=== PATIENT | female | born 1955 | race Caucasian/White ===

== ENCOUNTER 2017-04-28 10:59 | Inpatient (IN) | payer MEDICAID ==
[~2017-04-28] VITALS: Ht 154.9 cm; Wt 118.2 kg
--- NOTE | ~2017-04-28 | DS ---
PATIENT:SABI MARIN :57 MEDICAL RECORD: [id number] DISCHARGE SUMMARY ADMISSION DATE: 04/28/17 DISCHARGE DATE: DATE OF ADMISSION: 04/28/2017 DATE OF DISCHARGE: 04/29/2017 PROBLEM LIST: 1. Sick sinus syndrome with atrial fibrillation, controlled rate. 2. Hypertension. 3. Hyperlipidemia. 4. Coronary artery disease, status post coronary bypass grafting. BRIEF HISTORY AND HOSPITAL COURSE: Admitted with AFib with RVR, recent urinary tract infection, I suspect that is going to be a factor. She had pacemaker placed recently, however, was not placed on any rate controlling agents, had been on diltiazem and beta melisa in the past, both. She responded nicely to Cardizem drip, started on oral Cardizem, discharged home in good condition. MEDICATIONS: Same as admission with the addition of Cardizem-CD 300 every day. 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 TRANSINT:[id number] Voice Confirmation ID: [id number] DOCUMENT ID: [id number] JARROD BRANTLEY MD at 1021 CC: [id number] DICTATION DATE: 04/29/17 0840 NATIONAL FACILITIES MANAGER: 04/29/17 0956 ADM IN [place] [id number] [place] [address]
[2017-04-28 11:24] LABS: BASOPHILS 0.1 % (0-2); EOSINOPHILS 0.1 % (0-7); HEMATOCRIT 33.8 % (36.0-48.0); HEMOGLOBIN 10.9 g/dL (12-16); IMMATURE GRANULOCYTES 0.3 % (0-5); MCH 25.8 pg (26.0-34.0); MCHC 32.2 g/dL (31.0-37.0); MCV 80.1 fL (80.0-100.0); MEAN PLATELET VOLUME 9.8 fL (7.4-10.4); MONOCYTES 8.4 % (2-11); NEUTROPHILS 82.1 % (40-80); PLATELET COUNT 200 10x3/uL (130-400); RBC 4.22 10x6/uL (4.00-5.40); RDW 17.4 % (11.5-14.5); WBC 10.8 10x3/uL (4.8-10.8)
[2017-04-28 11:36] LABS: APTT 47.1 SECONDS (22.8-39.4); INR 2.78 (0.85-1.17); PROTIME 28.7 SECONDS (11.6-15.0)
[2017-04-28 11:41] LABS: ALBUMIN 2.4 g/dL (3.4-5.0); ALKALINE PHOSPHATASE 189 U/L (46-116); ALT (SGPT) 50 U/L (10-68); BILIRUBIN - TOTAL 2.02 mg/dL (0.2-1.3); CALC OSMOLALITY 267 mosm/kg (275-300); CALCIUM 8.6 mg/dL (8.5-10.1); CARBON DIOXIDE 28.7 mmol/L (21.0-32.0); CHLORIDE - SERUM 89 mmol/L (98-107); CREATININE - SERUM 1.2 mg/dL (0.6-1.3); POTASSIUM - SERUM 3.7 mmol/L (3.5-5.1); PROTEIN - SERUM 8.5 g/dL (6.4-8.2); SODIUM 127 mmol/L (136-145); UREA NITROGEN 15 mg/dL (7-18); eGFR NON AFRICAN AMERICAN 48 mL/min (90-120)
[2017-04-28 11:43] LABS: GLUCOSE 317 mg/dL (74-106)
[2017-04-28 12:00] LABS: CKMB 0.4 U/L (0.0-3.6); CREATINE KINASE 74 UL (21-215); PRO BNP 3103 pg/mL (0-125); TROPONIN-I 0.034 ng/mL (0.000-0.060)
[2017-04-28 18:22] LABS: CHOL - HDL RATIO 2.6 ratio (2.3-4.1); LDL-HDL RATIO 1.2 ratio (1.5-3.5)
[2017-04-29] VITALS: BP 154/73
[2017-04-29 00:32] VITALS: BP 136/74; Ht 154.9 cm; Wt 118.2 kg
[2017-04-29] MEDS ORDERED: HYDROCODONE-APA1 TAB PO (02:50)
[2017-04-29] MEDS ORDERED: XARELTO20 MG PO (02:50)
[2017-04-29] MEDS ORDERED: GLUCOTROL 5 MG T5 MG PO (02:51)
[2017-04-29] MEDS ORDERED: DILT-XR240 MG PO (02:52)
[2017-04-29] MEDS ORDERED: LANOXIN125 MCG PO (02:52)
[2017-04-29] MEDS ORDERED: BUMEX 1 MG TAB1 MG PO (02:52)
[2017-04-29] MEDS ORDERED: BETAPACE 80 MG80 MG PO (02:52)
[2017-04-29] MEDS ORDERED: LISINOPRIL10 MG PO (02:53)
[2017-04-29] MEDS ORDERED: KLOR-CON 1010 MEQ PO (02:54)
[2017-04-29 04:00] VITALS: BP 132/82
[2017-04-29 06:30] LABS: BASOPHILS 0.1 % (0-2); EOSINOPHILS 0.6 % (0-7); HEMATOCRIT 32.5 % (36.0-48.0); HEMOGLOBIN 10.4 g/dL (12-16); IMMATURE GRANULOCYTES 0.3 % (0-5); LYMPHOCYTES 13.4 % (15-50); MCH 25.5 pg (26.0-34.0); MCV 79.7 fL (80.0-100.0); MEAN PLATELET VOLUME 9.9 fL (7.4-10.4); MONOCYTES 8.2 % (2-11); NEUTROPHILS 77.4 % (40-80); PLATELET COUNT 187 10x3/uL (130-400); RBC 4.08 10x6/uL (4.00-5.40); RDW 17.4 % (11.5-14.5); WBC 11.3 10x3/uL (4.8-10.8)
[2017-04-29 07:29] LABS: ALBUMIN 2.3 g/dL (3.4-5.0); ANION GAP 12.7 mmol/L (8-16); BILIRUBIN - TOTAL 1.6 mg/dL (0.2-1.3); CALCIUM 8.5 mg/dL (8.5-10.1); CARBON DIOXIDE 28.6 mmol/L (21.0-32.0); CREATININE - SERUM 0.9 mg/dL (0.6-1.3); POTASSIUM - SERUM 3.3 mmol/L (3.5-5.1); PROTEIN - SERUM 7.9 g/dL (6.4-8.2)
[2017-04-29 08:41] VITALS: BP 133/76
== END 2017-04-29 11:13 | disposition home or self-care (01) | DRG 310 ==
LOC: D.ER 10:59 → D.EDHOLD 15:55 → D.M2 15:55
PROVIDERS: Family Medicine
DX: I48.91 Unspecified atrial fibrillation (principal); I10 Essential (primary) hypertension; E78.5 Hyperlipidemia, unspecified; I25.10 Atherosclerotic heart disease of native coronary artery without angina pectoris; Z95.1 Presence of aortocoronary bypass graft; Z95.0 Presence of cardiac pacemaker